=== PATIENT | female | born 1980 | race African-American/Black ===

== ENCOUNTER 2019-05-16 17:18 | Emergency (ER) | payer SELFPAY ==
[~2019-05-16] VITALS: Ht 172.7 cm; Wt 61.0 kg
[2019-05-16 17:23] VITALS: BP 120/74
--- NOTE | 2019-05-16 19:33 | NUR ---
PT AMBULATED TO BED 06
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
[2019-05-16] MEDS ORDERED: KETOROLAC 60 MG/2 ML VIAL IM ONE (20:00)
[2019-05-16 20:55] VITALS: BP 120/74
--- NOTE | 2019-05-16 20:55 | NUR ---
PT DISCHARGED WITH PAPERWORK. RX NORCO FOR PAIN. EDUCATED PT REGARDING MEDICATION AND S/E. EDUCATED PT REGARDING D/C DIAGNOSIS. PT VERBALIZED UNDERSTANDING OF TEACHING. TOLD PT TO FOLLOW UP WITH PCP AND WHEN TO RETURN TO ED. PT VSS. ALL QUESTIONS ANSWERED.
== END 2019-05-16 20:55 | disposition home or self-care (01) ==
LOC: MED 17:18
DX: S13.4XXA Sprain of ligaments of cervical spine, initial encounter (principal); M54.9 Dorsalgia, unspecified; M25.551 Pain in right hip; Z98.890 Other specified postprocedural states; Z88.8 Allergy status to other drugs, medicaments and biological substances; V89.2XXA Person injured in unspecified motor-vehicle accident, traffic, initial encounter; Y93.89 Activity, other specified; Y92.89 Other specified places as the place of occurrence of the external cause; Y99.8 Other external cause status
CPT/HCPCS: 81002; 81025; 96372; 99283; J1885